=== PATIENT | male | born 1990 | race Caucasian/White ===

== ENCOUNTER 2020-03-04 18:44 | Inpatient (IN) | payer SELFPAY ==
[~2020-03-04] VITALS: Ht 165.1 cm; Wt 72.6 kg
[2020-03-04 18:58] VITALS: BP 128/85
[2020-03-04] MEDS ORDERED: NACL 0.9% 1,000 ML IV ONE (19:10)
--- NOTE | 2020-03-04 19:18 | NUR ---
Dr. Sandra examining patient.
[2020-03-04] MEDS ORDERED: KETOROLAC 30 MG/ML VIAL IVP ONE (19:20)
--- NOTE | 2020-03-04 19:20 | NUR ---
30 Y/O MALE C/O RLQ ABDOMINAL INTERMITTENT CRAMPING 8/10 PAIN XYESTERDAY. WITH DIARRHEA. DENIES N/V. LUNG SOUNDS CLEAR. ABD SOFT NON TENDER. BOWEL SOUNDS ACTIVE. VSS. MED HX: DENIES NKA
--- NOTE | 2020-03-04 19:25 | NUR ---
PT TAKEN TO CT SCAN VIA W/C
[2020-03-04 19:28] LABS: BASOPHILS # (AUTO) 0.2 K/uL (0.00-0.22); BASOPHILS % (AUTO) 1.3 % (0.0-2.0); EOSINOPHILS % (AUTO) 0.1 % (0.0-4.0); HEMATOCRIT 41.3 % (36-52); LYMPHOCYTES # (AUTO) 0.4 K/uL (2.0-11.5); LYMPHOCYTES % (AUTO) 3.1 % (20.5-51.1); MEAN CORPUSCULAR HEMOGLOBIN 28 pg (27-31); MEAN CORPUSCULAR HGB CONC 34 g/dL (33-37); MEAN CORPUSCULAR VOLUME 81.5 fL (80-94); MONOCYTES # (AUTO) 1.1 K/uL (0.8-1.0); MONOCYTES % (AUTO) 8.6 % (1.7-9.3); NEUTROPHILS # (AUTO) 11.1 K/uL (1.8-7.7); NEUTROPHILS % (AUTO) 86.9 % (42.2-75.2); PLATELET COUNT (AUTO) 226 K/uL (140-450); RED BLOOD CELL COUNT(AUTO) 5.07 MIL/uL (4.20-6.10); RED CELL DISTRIBUTION WIDTH 13.2 % (11.6-13.7); WHITE BLOOD COUNT (AUTO) 12.7 K/uL (4.8-10.8)
--- NOTE | 2020-03-04 19:33 | NUR ---
Chance lee in ED - 03/04/20 at 1933 by PRASANTH PT RETURN FROM CT
--- NOTE | 2020-03-04 19:33 | NUR ---
PT RETURNED FROM CT SCAN
[2020-03-04 19:37] LABS: APPEARANCE,URINE CLEAR (CLEAR); BILIRUBIN,URINE 1+ (NEGATIVE); BLOOD, URINE 3+ (NEGATIVE); COLOR,URINE DARK YELLOW (YELLOW); LEUKOCYTE ESTERASE ,URINE NEGATIVE (NEGATIVE); NITRITE, URINE NEGATIVE (NEGATIVE); UGLUCOSE NEGATIVE (NEGATIVE)
[2020-03-04 19:41] LABS: ALBUMIN 4.5 g/dL (3.4-5.0); CARBON DIOXIDE 23.6 mmol/L (21-32); CREATININE 1.1 mg/dL (0.6-1.3); POTASSIUM 3.6 mmol/L (3.5-5.1)
[2020-03-04] MEDS ORDERED: PIPERACILLIN/TAZOBACTAM 3.375 GM in DEXTROSE 5% 50 ML IV ONE (19:50)
[2020-03-04] MEDS ORDERED: ZOLPIDEM 5 MG TAB PO PRN (19:55)
[2020-03-04] MEDS ORDERED: LORazepam 2 MG/ML VIAL IM/IVP PRN (19:55)
[2020-03-04] MEDS ORDERED: DOCUSATE SODIUM 100 MG GELCAP PO PRN (19:55)
[2020-03-04] MEDS ORDERED: DEXT 5% / NACL 0.45% 1,000 ML IV ONE (19:55)
[2020-03-04] MEDS ORDERED: ACETAMINOPHEN 325 MG TAB PO PRN (19:55)
[2020-03-04] MEDS ORDERED: ONDANSETRON 4 MG/2 ML VIAL IVP PRN ×2 (19:55→23:25)
[2020-03-04 20:00] LABS: WBC,URINE 0-5 /HPF (0-5)
--- NOTE | 2020-03-04 20:00 | NUR ---
XRAY AT BEDSIDE
--- NOTE | 2020-03-04 20:05 | NUR ---
CALLED [facility] CHARGE FOR ROOM/ WILL CALL BACK
--- NOTE | 2020-03-04 20:19 | NUR ---
LAB AT BEDSIDE
[2020-03-04] MEDS ORDERED: PIPERACILLIN/TAZOBACTAM 3.375 GM VIAL IV ONE (20:23)
[2020-03-04 20:26] LABS: PROTHROMBIN TIME 10.5 secs (10.8-13.4)
[2020-03-04 20:33] LABS: CHOL/HDL RATIO 2.1 (1-4.5); FREE T4 (FREE THYROXINE) 1.12 ng/dL (0.76-1.46); PHOSPHORUS 3.2 mg/dL (2.5-4.9); THYROID STIMULATING HORMONE 0.94 uIU/mL (0.34-3.74)
[2020-03-04 20:59] LABS: BARBITURATE, URINE NEGATIVE ng/ml (NEG <=200); BENZODIAZEPINE, URINE NEGATIVE ng/mL (NEG <=200); CANNABINOID, URINE NEGATIVE ng/mL (NEG <=50); COCAINE, URINE NEGATIVE ng/mL (NEG <=300); OPIATE, URINE NEGATIVE ng/mL (NEG <=2000); PHENCYCLIDINE SCREEN,URINE NEGATIVE ng/mL (NEG <=25)
[2020-03-04 21:00] VITALS: BP 139/78
--- NOTE | 2020-03-04 21:00 | NUR ---
RECEIVED BEDSIDE REPORT FROM ER NURSE. PT ARRIVED VIA WHEELCHAIR AND AMBULATED TO BED. PT IS AWAKE AND ALERT. BREATHING IS UNLABORED AND REGULAR. PT COMPLAINS OF PAIN IN HIS LOWER ABDOMEN FROM HIS BELLY BUTTON TO THE RIGHT LOWER QUADRANTS. PT STATES PAIN AT A SCALE OF 8/10 AND IT IS A SHARP PAIN. BOWEL SOUNDS ARE PRESENT IN ALL QUADRANTS. PT STATES HE IS CONSTIPATED. BREATH SOUNDS ARE CLEAR IN ALL LOBES BILATERALLY. PT IS STABLE AT THIS TIME. SKIN IS WARM, DRY, AND INTACT. IV IS IN THE LEFT AC 20 GAUGE RUNNING A BOLUS OF NS. BED IS IN THE LOWEST POSITION AND CALL LIGHT IS WITHIN REACH. PLAN WAS DISCUSSED.
--- NOTE | 2020-03-04 21:00 | NUR ---
Patient will be admitted to care of DR HANNAH. Admited to MED SURG. Will go to room 110 B. Belongings list completed. Report to ANUPAM KEARNS.
[2020-03-04] MEDS: HYDROcodone/APAP 5/325 MG 1 TAB TAB PO PRN (21:44)
--- NOTE | 2020-03-04 21:44 | NUR ---
PT COMPLAINS OF PAIN IN THE LOWER ABDOMEN A SHARP PAIN AT A SCALE OF 8/10. PT WAS GIVEN NORCO PRN FOR PAIN. PT IS CURRENTLY NPO EXCEPT MEDS AWAITING TO HEAR FOR WHEN THE SURGEON PLANS TO DO SURGERY FOR A LAPAROSCOPIC APPENDECTOMY.
[2020-03-04] MEDS ORDERED: BUPIVACAINE-MPF/EPI 0.25% 30 ML VIAL INJ ONE ×2 (22:19→22:20)
[2020-03-04] MEDS ORDERED: DEXAMETHASONE 4 MG/ML VIAL ONE (23:25)
[2020-03-04] MEDS ORDERED: HYDROmorphone 1 MG/ML AMP IVP PRN (23:25)
[2020-03-04] MEDS ORDERED: HYDROmorphone 1 MG/ML AMP ONE (23:25)
[2020-03-04] MEDS ORDERED: ONDANSETRON 4 MG/2 ML VIAL ONE (23:25)
[2020-03-04] MEDS ORDERED: fentaNYL citrate 0.05 MG/ML VIAL ONE (23:25)
[2020-03-04] MEDS ORDERED: NEOSTIGMINE 1:1000 10 MG/10 ML VIAL ONE (23:25)
[2020-03-04] MEDS ORDERED: GLYCOPYRROLATE 0.2 MG/ML VIAL ONE (23:25)
[2020-03-04] MEDS ORDERED: ROCURONIUM 50 MG/5 ML VIAL IV ONE (23:25)
[2020-03-04] MEDS ORDERED: PROPOFOL 200 MG/20 ML VIAL IV ONE (23:25)
[2020-03-04] MEDS ORDERED: KETOROLAC 30 MG/ML VIAL ONE (23:25)
[2020-03-04] MEDS ORDERED: SUCCINYLCHOLINE CHLORIDE 200 MG/10 ML VIAL IVP ONE (23:25)
--- NOTE | 2020-03-04 23:30 | NUR ---
OR NURSES HAVE ARRIVED TO GET PT TO TAKE TO SURGERY. PT IS GOING TO RECEIVE A LAPAROSCOPIC APPENDECTOMY. PT IS STABLE AT THIS TIME AND NOT COMPLAINING OF PAIN. COVID 19 RAPID TEST CAME BACK NEGATIVE. WILL WAIT FOR PT TO RETURN.
[2020-03-05] VITALS (8 sets, daily range): BP systolic 100–134; BP diastolic 52–80
--- NOTE | 2020-03-05 00:21 | NUR ---
PT IS CURRENTLY IN SURGERY.
[2020-03-05] MEDS: HYDROmorphone PFS 2 MG/ML SYR ONE ×2 (00:54→01:04)
--- NOTE | 2020-03-05 01:35 | NUR ---
PT HAS RETURNED FROM SURGERY. PT IS S/P LAPAROSCOPIC APPENDECTOMY. THREE INCISION SITES ON THE ABDOMEN WITH BANDAIDS AND MINIMAL DRAINAGE. JASMINA ARE IN PLACE OVER THE SURGICAL INCISION SITES PER OR NURSE. PT'S O2 SAT IS 83% UPON ARRIVAL AND WAS PLACED ON 3L O2 NC. O2 SAT IS NOW 97%. BP IS 134/54, HR 83, TEMP 97.8, RR 18, AND PAIN LEVEL 7/10. PT IS STABLE AT THIS TIME, WILL CONTINUE TO MONITOR.
[2020-03-05] MEDS ORDERED: PIPERACILLIN/TAZOBACTAM 3.375 GM VIAL IV ONE ×2 (02:00→05:18)
[2020-03-05] MEDS: PIPERACILLIN/TAZOBACTAM 3.375 GM in DEXTROSE 5% 50 ML IV SCH ×5 (02:05→23:15)
[2020-03-05] MEDS: MORPHINE SULFATE 2 MG/ML SYR IVP PRN ×4 (03:26→22:28)
--- NOTE | 2020-03-05 03:26 | NUR ---
PT WAS COMPLAINING OF PAIN IN THE ABDOMEN AREA WHERE THE INCISION SITES ARE LOCATED. PT SAID THE PAIN WAS 9/10 AND WAS A SHARP PAIN. PT WAS GIVEN MORPHINE ORDERED FOR PAIN. BP WAS 112/70 PRIOR TO ADMINISTRATION.
[2020-03-05] MEDS: HYDROcodone/APAP 5/325 MG 1 TAB TAB PO PRN ×2 (05:17→17:31)
--- NOTE | 2020-03-05 05:17 | NUR ---
PT STATES HE IS IN PAIN IN THE ABDOMEN AREA AFTER WAKING UP. HE SAYS THE PAIN IS AT A SCALE OF 6/10. PT WAS GIVEN NORCO FOR PAIN. BP WAS 115/68 PRIOR TO ADMINISTRATION OF THE MEDICATION. WILL MONITOR PAIN.
[2020-03-05 06:01] LABS: BASOPHILS % (AUTO) 0.3 % (0.0-2.0); HEMATOCRIT 38.5 % (36-52); HEMOGLOBIN 13.1 g/dL (12.0-18.0); LYMPHOCYTES # (AUTO) 0.3 K/uL (2.0-11.5); LYMPHOCYTES % (AUTO) 2.1 % (20.5-51.1); MEAN CORPUSCULAR HEMOGLOBIN 28 pg (27-31); MEAN CORPUSCULAR HGB CONC 34 g/dL (33-37); MEAN CORPUSCULAR VOLUME 81.4 fL (80-94); MONOCYTES % (AUTO) 6.3 % (1.7-9.3); NEUTROPHILS % (AUTO) 91.3 % (42.2-75.2); PLATELET COUNT (AUTO) 197 K/uL (140-450); RED BLOOD CELL COUNT(AUTO) 4.73 MIL/uL (4.20-6.10); RED CELL DISTRIBUTION WIDTH 13.2 % (11.6-13.7); WHITE BLOOD COUNT (AUTO) 15.3 K/uL (4.8-10.8)
--- NOTE | 2020-03-05 06:20 | NUR ---
PT IS ASLEEP. BREATHING IS UNLABORED ON 1L O2 NC. CHEST RISE AND FALL IS SYMMETRICAL. PT IS NOT COMPLAINING OF PAIN AT THIS TIME AND DOES NOT APPEAR TO BE IN DISTRESS. CHECKED INCISION SITES AND THE BANDAIDS HAVE MINIMAL DRAINAGE. IV FLUIDS ARE PATENT AND INFUSING. PT IS STABLE AT THIS TIME.
[2020-03-05 06:32] LABS: ANION GAP 13.8 (8-16); CARBON DIOXIDE 25.2 mmol/L (21-32); CREATININE 0.9 mg/dL (0.6-1.3); MAGNESIUM 2.1 mg/dL (1.8-2.4)
--- NOTE | 2020-03-05 06:52 | NUR ---
PT IS COMPLAINING OF PAIN AT THE SURGICAL SITE AND LOWER ABDOMEN. PAIN IS RATED A SCALE OF 9/10 AND IS A SHARP PAIN. PT WAS GIVEN MORPHINE ORDERED PRN FOR PAIN. WILL MONITOR PAIN AND ENDORSE TO DAY SHIFT NURSE.
--- NOTE | 2020-03-05 07:30 | NUR ---
ENDORSED PT TO DAY SHIFT NURSE FOR CONTINUITY OF CARE. PT IS STABLE AT THIS TIME. HAS NOT HAD A BM YET. NO PAIN STATED BY PT. PLAN OF CARE DISCUSSED.
--- NOTE | 2020-03-05 07:30 | NUR ---
RECEIVED REPORT FROM RADIO DIVISION CAPTAIN RN FOR CONTINUITY OF CARE. PATIENT IS AWAKE, AAO X4. ABLE TO MAKE NEEDS KNOWN. MILD ABDOMINAL PAIN NOTED, PAIN MEDS GIVEN BY RADIO DIVISION CAPTAIN RN AT 0652. RESPIRATORY EVEN AND UNLABORED. IV SITE LEFT AC 20 G PATENT, INFUSING D5 1/2 NS @ 100 ML/HR. ABDOMINAL 3 INCISIONS NOTED, NO S/S OF INFECTION. SAFETY MEASURES IN PLACE, CALL LIGHT WITHIN REACH. PLAN OF CARE DISCUSSED. WILL CONTINUE TO MONITOR.
--- NOTE | 2020-03-05 11:44 | NUR ---
MORPHINE GIVEN VIA IVP FOR ABD PAIN 11/25. ZOSYN GIVEN VIA IVPB, EDUCATION PROVIDED, PATIENT TOLERATED WELL, SAFETY MEASURES IN PLACE. WILL CONTINUE TO MONITOR.
--- NOTE | 2020-03-05 15:09 | NUR ---
PATIENT AWAKE, RESTING IN BED, NO ACUTE DISTRESS NOTED. SAFETY MEASURES IN PLACE, WILL CONTINUE TO MONITOR.
--- NOTE | 2020-03-05 19:05 | NUR ---
ENDORSED PATIENT TO MOLD MECHANIC RN FOR CONTINUITY OF CARE. PATIENT IS STABLE CONDITION.
--- NOTE | 2020-03-05 19:05 | NUR ---
RECEIVED BEDSIDE REPORT FROM DAY SHIFT NURSE FOR CONTINUITY OF CARE. PT IS AWAKE AND ALERT, LAYING IN SEMI FOWLERS POSITION. NO COMPLAINT OF PAIN AT THIS TIME. BREATHING IS UNLABORED. NO BM ON THIS SHIFT PER DAY SHIFT NURSE. SKIN IS WARM AND DRY. THREE SURGICAL INCISIONS IN THE RIGHT AND LOWER ABDOMEN. JASMINA IN PLACE COVERED BY BANDAIDS WITH MINIMAL DRAINAGE. PT HAS BATHROOM PRIVILEGES. IV IS IN THE LEFT AC 20 GAUGE. BED IS IN THE LOWEST POSITION AND CALL LIGHT IS WITHIN REACH.
--- NOTE | 2020-03-05 21:00 | NUR ---
PT IS AWAKE AND ALERT. A&O X4. BOWEL SOUNDS ARE PRESENT. 3 INCISIONS ARE IN THE ABDOMEN AREA WITH BANDAIDS, MINIMAL DRAINAGE. PT IS NOT COMPLAINING OF PAIN AT THIS TIME. PT IS STABLE.
--- NOTE | 2020-03-05 22:28 | NUR ---
PT COMPLAINS OF PAIN AT THE SURGICAL INCISION SITE AT A SCALE OF 8/10. HE STATED THE PAIN A SHARP, SHOOTING PAIN. PT WAS GIVEN MORPHINE PRN FOR SEVERE PAIN. BP WAS 133/66 PRIOR TO ADMINISTRATION. WILL MONITOR PAIN LEVEL.
[2020-03-05] MEDS ORDERED: HYDROmorphone PFS 2 MG/ML SYR ONE (23:25)
[2020-03-05] MEDS ORDERED: fentaNYL citrate 0.05 MG/ML VIAL ONE (23:25)
[2020-03-05] MEDS ORDERED: ROCURONIUM 50 MG/5 ML VIAL IV ONE (23:25)
[2020-03-05] MEDS ORDERED: KETOROLAC 30 MG/ML VIAL ONE (23:25)
[2020-03-05] MEDS ORDERED: DEXAMETHASONE 4 MG/ML VIAL ONE (23:25)
[2020-03-05] MEDS ORDERED: PROPOFOL 200 MG/20 ML VIAL IV ONE (23:25)
[2020-03-05] MEDS ORDERED: ONDANSETRON 4 MG/2 ML VIAL ONE (23:25)
[2020-03-05] MEDS ORDERED: SUCCINYLCHOLINE CHLORIDE 200 MG/10 ML VIAL IVP ONE (23:25)
[2020-03-06] VITALS: BP 120/71
--- NOTE | 2020-03-06 00:30 | NUR ---
ROUNDED ON PT. HE IS ASLEEP WITH NO SIGNS OF DISTRESS OR PAIN. IV IS RUNNING TKO AND PATENT. BED IS IN THE LOWEST POSITION AND CALL LIGHT IS WITHIN REACH.
--- NOTE | 2020-03-06 01:41 | NUR ---
PT WAS INFORMED ABOUT THE IMPORTANCE OF PERFORMING THE INCENTIVE SPIROMETER TEN TIMES EVERY HOUR AND HE VERBALIZED UNDERSTANDING. PT WAS ALSO ENCOURAGED TO GET OUT OF BED AND WALK AROUND OR USE THE RESTROOM INSTEAD OF THE URINAL. PT STATED HE WOULD TRY TO GET UP THE NEXT TIME HE HAD TO USE THE RESTROOM. SCD'S ARE IN PLACE AND PT IS STABLE.
--- NOTE | 2020-03-06 04:00 | NUR ---
PT IS AWAKE. NO COMPLAINTS AT THIS TIME. UP TO THE RESTROOM WHERE PT VOIDED. PT IS BACK TO BED, TOLERATED ACTIVITY WELL. STOMACH IS A LITTLE DISTENDED. INFORMED PT TO AMBULATE TO RELEASE GAS AND STIMULATE BOWEL. PT VERBALIZED UNDERSTANDING.
[2020-03-06] MEDS: MORPHINE SULFATE 2 MG/ML SYR IVP PRN (04:15)
--- NOTE | 2020-03-06 04:26 | NUR ---
PT'S NURSE IS ON LUNCH. I'M COVERING THE NURSE. PT REPORTED SEVERE PAIN 10/10. MEDICATED ORDERED. EDUCATION WAS GIVEN.
[2020-03-06] MEDS: PIPERACILLIN/TAZOBACTAM 3.375 GM in DEXTROSE 5% 50 ML IV SCH ×2 (05:45→11:40)
[2020-03-06 06:08] LABS: BASOPHILS % (AUTO) 0.1 % (0.0-2.0); EOSINOPHILS % (AUTO) 0.2 % (0.0-4.0); HEMATOCRIT 39.7 % (36-52); HEMOGLOBIN 13.4 g/dL (12.0-18.0); LYMPHOCYTES # (AUTO) 0.9 K/uL (2.0-11.5); MEAN CORPUSCULAR HEMOGLOBIN 28 pg (27-31); MEAN CORPUSCULAR HGB CONC 34 g/dL (33-37); MEAN CORPUSCULAR VOLUME 81.9 fL (80-94); MONOCYTES # (AUTO) 1.4 K/uL (0.8-1.0); MONOCYTES % (AUTO) 10.5 % (1.7-9.3); NEUTROPHILS # (AUTO) 10.9 K/uL (1.8-7.7); NEUTROPHILS % (AUTO) 82.2 % (42.2-75.2); PLATELET COUNT (AUTO) 231 K/uL (140-450); RED BLOOD CELL COUNT(AUTO) 4.85 MIL/uL (4.20-6.10); RED CELL DISTRIBUTION WIDTH 13.7 % (11.6-13.7); WHITE BLOOD COUNT (AUTO) 13.2 K/uL (4.8-10.8)
--- NOTE | 2020-03-06 06:30 | NUR ---
PT IS STABLE. NO PAIN AT THIS TIME. BREATHING IS UNLABORED. WILL CONTINUE TO MONITOR.
[2020-03-06 06:33] LABS: ANION GAP 15.3 (8-16); CARBON DIOXIDE 26.7 mmol/L (21-32)
[2020-03-06 06:52] LABS: MAGNESIUM 2.1 mg/dL (1.8-2.4); PHOSPHORUS 3.1 mg/dL (2.5-4.9)
--- NOTE | 2020-03-06 07:05 | NUR ---
ENDORSED PT TO DAY SHIFT NURSE FOR CONTINUITY OF CARE. PLAN OF CARE DISCUSSED. PT IS STABLE AT THIS TIME. PT DENIES PAIN.
--- NOTE | 2020-03-06 07:31 | NUR ---
RECEIVED REPORT FROM PM RNANUPAM. PT CAME FROM HOME. CC: ABD PAIN. DX: ACUTE APPENDICITIS, STATUS POST OP APPENDECTOMY. NO PMHX. FULL CODE. IV: LAC 20G TKO NS, ZYOSEN. FULL LIQUID DIET. PT IS INDEPENDENT AND ABLE OT AMBULATE. PT IS ON RA, LUNGS SOUNDS CLEAR. PT HAS BEEN PASSING SMALL STOOLS AND FLATS. PT HAS 3 INCISIONS WITH JASMINA. MUST COLLECT DC PHOTOS. PLANS: DC WITH ANTIBIOTICS, F/U WITH DR OWENS.
[2020-03-06 08:00] VITALS: BP 120/70
--- NOTE | 2020-03-06 08:42 | NUR ---
AWAKE AND ALERT VERBALLY RESPONSIVE TOLERATED INCENTIVE SPIROMETRY THERAPY WELL WITHOUT INCIDENT ENCOURAGED PATIENT WITH ACKNOWLEDGEMENT TO USE INCENTIVE SPIROMETRY EVERY 1-2 HOURS WHILE AWAKE
--- NOTE | 2020-03-06 08:52 | NUR ---
PATIENT HAS BEEN SCREENED AND CATEGORIZED LOW NUTRITION RISK. PATIENT WILL BE SEEN WITHIN 7 DAYS OF ADMISSION. 03/11/[address]
--- NOTE | 2020-03-06 09:00 | NUR ---
NO 0900 MEDS TO PASS. NO COMPLAINTS OF PAIN. PT IS RESTING. PT STATES HE IS PASSING GAS AND SMALL STOOLS IN THE BATHROOM.
--- NOTE | 2020-03-06 11:00 | NUR ---
COMPLETED ROUND. NO COMPLAINTS OF PAIN. PT WAS MOVED TO BED 126B.
--- NOTE | 2020-03-06 12:26 | NUR ---
DISCHARGE PLANNING: POST OP DAY #2 - S/P LAP APPENDECTOMY BY DR. OWENS 03/04/2020. ON FULL LIQUID DIET. FOR POSSIBLE DC TODAY PENDING SURGEON'S RECOMMENDATIONS.
--- NOTE | 2020-03-06 12:36 | NUR ---
SOCIAL WORK NOTE: Patient's Orientation Unable To Assess Information Provided By ROMMEL KLEIN - MOTHER Comments SW WAS UNABLE TO MEET PATIENT AT BEDSIDE. SW COMPLETED ASSESSMENT WITH PATIENT'S MOTHER AND VERIFIED DEMOGRAPHICS. Post Doc Fellowship, Realtionship and Phone Number ROMMEL BURK [phone] Healthcare Power of Textile Stylist No Does Patient Have a POLST No Identifying Problems No Social Work Triggers Is A Social Work Consult Needed No Mandate Report Filed No Explanation Of Identifying Problems PATIENT IS A 30-YEAR-OLD MALE ADMITTED FOR ACUTE APPENDICITIS. PATIENT HAS NO PERTINENT PMHX. PATIENT'S MOTHER REPORTED NO HISTORY OF SUBSTANCE ABUSE OR MENTAL HEALTH. Admitted From Home Pre-Admission Level Of Functioning Status Independent/Ambulatory Prior Resources/Services Used In Last 12 Months No Prior Resources Used Prior DME No Prior DME Used Dialysis Comments PER MOTHER, PATIENT DOES NOT RECEIVE DIALYSIS. Living Situation Lives With Family House Patient Had Caregiver No Home Support No Caregiver Issues Financial Issues No Known Financial Issue Referral To The Financial Counselor Needed No Factors/Needs No D/C Needs Identified Pt/Rep Participated In Discharge Plan Yes Patient/Family Agress With Discharge Plan Yes Discharge Plan Comments TENTATIVE DISCHARGE PLAN IS FOR PATIENT TO RETURN HOME DC Plan Status Initiated
--- NOTE | 2020-03-06 13:39 | NUR ---
COMPLETED WOUND ASSESSMENT. NO COMPLAINTS OF PAIN. NO SIGNS OF INFECTION. MINIMAL DRAINAGE. DRESSING HAS BEEN CHANGED.
[2020-03-06 16:00] VITALS: BP 152/81
[2020-03-06] MEDS ORDERED: AMOX-1000 PO (17:12)
[2020-03-06 17:38] VITALS: BP 152/81
--- NOTE | 2020-03-06 18:00 | NUR ---
GAVE PT DC EDUCATION. PT IS ABLE TO TEND TO HIS INCISION CARE. PT VERBALIZES UNDERSTANDING. NO COMPLAINTS OF PAIN. WALKED PT TO THE LOBBY.
== END 2020-03-06 18:45 | disposition home or self-care (01) | DRG 853 ==
LOC: MED 18:44 → MTU 19:57 → MMU 03-06 10:31
PROVIDERS: ADMIT Family Medicine; ATTEND Family Medicine
PROC: 0DTJ4ZZ Resection of Appendix, Percutaneous Endoscopic Approach (ICD-10-PCS; principal; 2020-03-05)
DX: A41.9 Sepsis, unspecified organism (principal); K35.33 Acute appendicitis with perforation, localized peritonitis, and gangrene, with abscess; E87.1 Hypo-osmolality and hyponatremia; F17.210 Nicotine dependence, cigarettes, uncomplicated; E87.8 Other disorders of electrolyte and fluid balance, not elsewhere classified; Z20.828 Contact with and (suspected) exposure to other viral communicable diseases
CPT/HCPCS: 36415; 71045; 80048; 80053; 80305; 81001; 82150; 82374; 83036; 83690; 83735; 83880; 84100; 84439; 84443; 85025; 85610; 85730; 87040; 87081; 96361; 96365; 96375; 99285; J0330; J1100; J1170; J1885; J2270; J2405; J2543; J2704; J2710; J3010; J3490; J7030; J7060; Q0092

== ENCOUNTER 2020-06-24 22:42 | Emergency (ER) | payer MEDICAID, SELFPAY ==
[~2020-06-24] VITALS: Ht 182.9 cm; Wt 77.1 kg
[~2020-06-24 22:42] MED LIST: AMOX-1000 PO
--- NOTE | 2020-06-24 22:42 | NUR ---
PT JANE ALS. TAKEN TO BED 7
[2020-06-24 22:44] VITALS: BP 142/80
[2020-06-24] MEDS ORDERED: NACL 0.9% 1,000 ML IV ONE (23:10)
--- NOTE | 2020-06-24 23:15 | NUR ---
PT WAS FOUND BY HIS FAMILY UNRESPOSIVE, BROTHER STARTED CPR ON PT. UPON ARRIVAL BY PARAMEDICS PT WAS GIVEN 2MG NARCAN IN THE FIELD AND BECAME MORE RESPONSIVE. FAMILY BELIEVES PT TOOK FENTANYL AND OVERDOSED. PT A/O X 2. HE IS CURRENTLY DENYING TAKING ANY DRUGS OR MEDS, STATING, "I DON'T USE DRUGS". PT PLACED ON BEDSIDE MONITOR AND 02 2L N/C. BED IN LOWEST POSITION AND LOCKED, SIDERAIL UP X 2 FOR PT SAFETY. NKA NO HX
[2020-06-25 00:03] LABS: BARBITURATE, URINE NEGATIVE ng/ml (NEG <=200); BENZODIAZEPINE, URINE NEGATIVE ng/mL (NEG <=200); CANNABINOID, URINE NEGATIVE ng/mL (NEG <=50); COCAINE, URINE NEGATIVE ng/mL (NEG <=300); OPIATE, URINE NEGATIVE ng/mL (NEG <=2000); PHENCYCLIDINE SCREEN,URINE NEGATIVE ng/mL (NEG <=25)
--- NOTE | 2020-06-25 00:40 | NUR ---
PT MORE AWAKE AND ORIENTED AT THIS TIME. IV FLUIDS FINISHED INFUSING. PT'S MOTHER, RYAN, IS IN THE WAITING ROOM WANTING AN UPDATE ON HER SON. RECEIVED OK FROM PT TO SPEAK TO MOTHER.
--- NOTE | 2020-06-25 00:54 | NUR ---
MOTHER - ROMMEL CLEARY [phone]. CALL HER WHEN PT IS DISCHARGED
[2020-06-25 01:22] VITALS: BP 115/71
--- NOTE | 2020-06-25 01:23 | NUR ---
CALLED MOTHER TO LET HER KNOW PT IS D/C'ED, SAID SHE WOULD BE HERE IN 10-15 TO PICK HIM UP
--- NOTE | 2020-06-25 01:24 | NUR ---
Patient discharged with v/s stable. Written and verbal after care instructions given and explained. Patient alert, oriented and verbalized understanding of instructions. Ambulatory with steady gait. All questions addressed prior to discharge. ID band removed. Patient advised to follow up with PMD. Rx of NARCAN given. Patient educated on indication of medication including possible reaction and side effects. Opportunity to ask questions provided and answered.
== END 2020-06-25 01:24 | disposition home or self-care (01) ==
LOC: MED 22:42
DX: T50.7X1A Poisoning by analeptics and opioid receptor antagonists, accidental (unintentional), initial encounter (principal); R41.82 Altered mental status, unspecified; F17.210 Nicotine dependence, cigarettes, uncomplicated; Y92.89 Other specified places as the place of occurrence of the external cause; Z71.6 Tobacco abuse counseling
CPT/HCPCS: 71045; 80305; 93005; 96360; 96361; 99285; J7030